=== PATIENT | female | born 1960 | race Caucasian/White ===

== ENCOUNTER → 2020-10-26 | Outpatient (CLI) | payer MEDICARE, OTHER ==
[~2020-10-26] MED LIST: ANORO ELLIPTA1 EACH INH; CALCIUM WITH V1 EAC1 PO; CITALOPRAM HBR20 MG PO; DEXILANT60 MG PO; FLEXERIL 10 MG10 MG PO; FLONASE 0.05% N16 GM; IMDUR ER TAB 3030 MG PO; LETROZOLE2.5 MG PO; LIPITOR TAB 2020 MG PO; NAPROSYN500 MG PO; NORCO 7.5-3251 EACH PO; VITAMIN D250000 UNIT PO; ZANTAC150 MG PO
== END ==
LOC: CT 10-08 09:00
DX: Z12.2 Encounter for screening for malignant neoplasm of respiratory organs (principal); Z87.891 Personal history of nicotine dependence
CPT/HCPCS: 71271

== ENCOUNTER → 2020-11-18 | Outpatient (CLI) | payer MEDICARE, OTHER | LOC: MAMO 15:17 | DX: Z12.31 Encounter for screening mammogram for malignant neoplasm of breast (principal) | CPT/HCPCS: 77063; 77067 ==

== ENCOUNTER → 2021-10-05 | Outpatient (CLI) | payer MEDICARE, OTHER ==
[2021-10-05 09:06] LABS: HEMOGLOBIN 12.6 gm/dl (12.3-15.3); RED BLOOD COUNT 5.01 M/UL (4.00-5.10); WHITE BLOOD COUNT 7.4 K/UL (4.5-11.0)
[2021-10-05 09:47] LABS: BUN/CREATININE RATIO 28 (0-10)
== END ==
LOC: ECHO 08:00 → HEART 5 08:00 → ECHO 08:44
PROVIDERS: Internal Medicine Cardiovascular Disease
DX: I10 Essential (primary) hypertension (principal); R06.02 Shortness of breath
CPT/HCPCS: ECHO; 36415; 80053; 80061; 83735; 84439; 84443; 85025; 93306